=== PATIENT | female | born 1995 | race Caucasian/White ===

== ENCOUNTER 2016-09-24 19:09 | Emergency (ER) | payer OTHER ==
--- NOTE | 2016-09-24 19:41 | EDPHY ---
H & P Stated Complaint: Sent by [facility], concerned about a kidney infection Time Seen by Provider: 09/24/16 19:40 - Personal History LMP (Females 10-55): 1-7 Days Ago Current Tetanus Diphtheria and Acellular Pertussis (TDAP): Yes Tetanus Vaccine Date: 2013 - Medical/Surgical History Hx Asthma: No Hx Chronic Respiratory Disease: No Hx Diabetes: No Hx Cardiac Disease: No Hx Renal Disease: No Hx Cirrhosis: No Hx Alcoholism: No Hx HIV/AIDS: No Hx Splenectomy or Spleen Trauma: No Other PMH: ortho injuries. Anxiety - Social History Smoking Status: Never smoked Constitutional: Initial Vital Signs Temperature (C) 37.1 C 09/24/16 19:18 Heart Rate 91 09/24/16 19:18 Respiratory Rate 18 09/24/16 19:18 Blood Pressure 115/67 09/24/16 19:18 O2 Sat (%) 100 09/24/16 19:18 O2 Delivery Mode Room Air Allergies/Adverse Reactions: honey Allergy (Verified 10/13/14 12:52) Home Medications: Medication Instructions Recorded Cephalexin [Keflex (RX)] 500 mg PO TID #30 cap 09/24/16 Escitalopram Oxalate 09/24/16 Hydrocodone/APAP 5/325 [[place] 1 - 2 each PO Q4-6PRN PRN #20 tab 09/24/16 5/325] hydrOXYzine HCL 09/24/16 Medical Decision Making ED Course/Re-evaluation: CHIEF COMPLAINT: Abdominal pain. HISTORY OF PRESENT ILLNESS: The patient is a 21-year-old female who presents with non-radiating abdominal pain that began 3 days ago. She was diagnosed with a UTI a week ago but did not take any antibiotics as she was diagnosed in [place] and was given an unknown medication she did not take. She was seen at [facility] for the abdominal pain and was told she has pyelonephritis after a urinalysis, however she was not placed on antibiotics and was referred to the ED. She denies fever, vomiting, nausea, diarrhea, or other complaints. REVIEW OF SYSTEMS: A 10 point review of systems was performed and is negative with the exception of the elements mentioned in the history of present illness. PHYSICAL EXAM: HR, BP, O2 Sat, RR. Temp noted General Appearance: Alert, well hydrated, appropriate, and non-toxic appearing. Head: Atraumatic without scalp tenderness or obvious injury Eyes: Pupils equal, round, reactive to light and accommodation, EOMI, no trauma , no injection. Ears: Clear bilaterally, no perforation, normal landmarks Nose: Atraumatic, no rhinorrhea, clear. Throat: There is no erythema or exudates, no lesions, normal tonsils, mucus membranes moist. Neck: Supple, 2+ carotid upstroke, nontender, no lymphadenopathy. Respiratory: No retractions, no distress, no wheezes, and no accessory muscle use. Lungs are clear to auscultation bilaterally. Cardiovascular: Regular rate and rhythm, no murmurs, rubs, or gallops. Bilateral carotid, radial, dorsalis pedis, and posterior tibial pulses intact. Good capillary refill all extremities. Gastrointestinal: Abdomen is soft, non-distended, no masses, no rebound, no guarding, no peritoneal signs. RLQ tenderness. Musculoskeletal: Normal active ROM of all extremities, atraumatic. Neurological: Alert, appropriate, and interactive. The patient has normal DTRs and non-focal cranial nerves, motor, sensory, and cerebellar exam. Skin: No rashes, good turgor, no nodules on palpation. Past medical history: UTI, anxiety. Past surgical history: N/A. Family history: N/A. Social history: [employer] Student. DIAGNOSTICS/PROCEDURES/CRITICAL CARE TIME: Study: Ultrasound of the: RLQ. Indication: Pain. Results: No evidence of appendicitis no other acute findings DIFFERENTIAL DIAGNOSIS: The differential diagnosis for the patient's abdominal pain included but was not limited to ovarian cyst, pelvic inflammatory disease, ovarian torsion, urinary tract infection, ectopic , cholecystitis, and appendicitis. MEDICAL DECISION MAKIN-year-old female diagnosed with UTI a week ago presents with 3 days of abdominal pain. She was diagnosed with her UTI in [place] and did not take the medications she was prescribed. She visited [facility] for this abdominal pain and was told she has pyelonephritis however was not given any antibiotics. Her abdominal pain does not radiate. She denies other complaints at this time. We will run a urinalysis. On exam she is quite tender in the RLQ. This concerns me slightly and I will order a RLQ ultrasound. Urine is consistent with pyelonephritis. 25-50 WBC, 2+ Leukocyte esterase. Her lab work is otherwise negative and she does not have an elevated white count. I have given this patient 1 g of ceftriaxone. I am awaiting ultrasound results but I have low suspicion for a surgical finding I believe this to be a right- sided pyelonephritis. Patient is able to take p. o.. Patient is not nauseated and vomiting. Will discharge the patient on cephalexin - Data Points Laboratory Results: Laboratory Results 09/24/16 20:11 09/24/16 20:11 09/24/16 09/24/16 09/24/16 20:11 20:11 20:11 WBC 6.98 10^3/uL 10^3/uL (3.80-9.50) RBC 4.35 10^6/uL 10^6/uL (4.18-5.33) Hgb 12.9 g/dL g/dL (12.6-16.3) Hct 38.0 % % (38.0-47.0) MCV 87.4 fL fL (81.5-99.8) MCH 29.7 pg pg (27.9-34.1) MCHC 33.9 g/dL g/dL (32.4-36.7) RDW 12.6 % % (11.5-15.2) Plt Count 178 10^3/uL 10^3/uL (150-400) MPV 10.4 fL fL (8.7-11.7) Neut % (Auto) 76.8 % H % (39.3-74.2) Lymph % (Auto) 13.6 % L % (15.0-45.0) [place] % (Auto) 8.6 % % (4.5-13.0) Eos % (Auto) 0.3 % L % (0.6-7.6) Baso % (Auto) 0.4 % % (0.3-1.7) Nucleat RBC Rel Count 0.0 % % (0.0-0.2) Absolute Neuts (auto) 5.36 10^3/uL 10^3/uL (1.70-6.50) Absolute Lymphs (auto) 0.95 10^3/uL L 10^3/uL (1.00-3.00) Absolute Monos (auto) 0.60 10^3/uL 10^3/uL (0.30-0.80) Absolute Eos (auto) 0.02 10^3/uL L 10^3/uL (0.03-0.40) Absolute Basos (auto) 0.03 10^3/uL 10^3/uL (0.02-0.10) Absolute Nucleated RBC 0.00 10^3/uL 10^3/uL (0-0.01) Immature Gran % 0.3 % % (0.0-1.1) Immature Gran # 0.02 10^3/uL 10^3/uL (0.00-0.10) Sodium 136 mEq/L mEq/L (134-144) Potassium 4.1 mEq/L mEq/L (3.5-5.2) Chloride 105 mEq/L mEq/L (97-110) Carbon Dioxide 22 mEq/l mEq/l (22-31) Anion Gap 9 mEq/L mEq/L (8-16) BUN 5 mg/dL L mg/dL (7-23) Creatinine 0.6 mg/dL mg/dL (0.6-1.0) Estimated GFR > 60 Glucose 91 mg/dL mg/dL (70-100) Calcium 9.2 mg/dL mg/dL (8.5-10.4) Total Bilirubin 0.5 mg/dL mg/dL (0.1-1.4) Conjugated Bilirubin 0.3 mg/dL mg/dL (0.0-0.5) Unconjugated Bilirubin 0.2 mg/dL mg/dL (0.0-1.1) AST 20 IU/L IU/L (14-46) ALT 32 IU/L IU/L (9-52) Alkaline Phosphatase 47 IU/L IU/L (38-126) Total Protein 7.2 g/dL g/dL (6.3-8.2) Albumin 4.0 g/dL g/dL (3.5-5.0) Lipase 128.0 IU/L IU/L (23-300) Beta HCG, Qual NEGATIVE Urine Color Urine Appearance Urine pH Ur Specific [place] Urine Protein Urine Ketones Urine Blood Urine Nitrate Urine Bilirubin Urine Urobilinogen Ur Leukocyte Esterase Urine RBC Urine WBC Ur Epithelial Cells Ur Culture Indicated? Urine Glucose 09/24/16 19:20 WBC RBC Hgb Hct MCV MCH MCHC RDW Plt Count MPV Neut % (Auto) Lymph % (Auto) [place] % (Auto) Eos % (Auto) Baso % (Auto) Nucleat RBC Rel Count Absolute Neuts (auto) Absolute Lymphs (auto) Absolute Monos (auto) Absolute Eos (auto) Absolute Basos (auto) Absolute Nucleated RBC Immature Gran % Immature Gran # Sodium Potassium Chloride Carbon Dioxide Anion Gap BUN Creatinine Estimated GFR Glucose Calcium Total Bilirubin Conjugated Bilirubin Unconjugated Bilirubin AST ALT Alkaline Phosphatase Total Protein Albumin Lipase Beta HCG, Qual Urine Color PALE YELLOW Urine Appearance CLEAR Urine pH 7.0 (5.0-7.5) Ur Specific [place] 1.002 (1.002-1.030) Urine Protein NEGATIVE (NEGATIVE) Urine Ketones NEGATIVE (NEGATIVE) Urine Blood 1+ H (NEGATIVE) Urine Nitrate NEGATIVE (NEGATIVE) Urine Bilirubin NEGATIVE (NEGATIVE) Urine Urobilinogen NEGATIVE EU EU (0.2-1.0) Ur Leukocyte Esterase 2+ H (NEGATIVE) Urine RBC 5-10 /hpf H /hpf (0-3) Urine WBC 25-50 /hpf H /hpf (0-3) Ur Epithelial Cells TRACE /lpf /lpf (NONE-1+) Ur Culture Indicated? INDICATED H (NI) Urine Glucose NEGATIVE (NEGATIVE) Medications Given: Discontinued Medications Sodium Chloride (Ns) 1,000 mls @ 0 mls/hr IV ONCE ONE PRN Reason: Wide Open Stop: 09/24/16 19:58 Last Admin: 09/24/16 20:13 Dose: 1,000 mls Sodium Chloride (Ns) 1,000 mls @ 0 mls/hr IV ONCE ONE PRN Reason: Wide Open Stop: 09/24/16 19:58 Last Admin: 09/24/16 20:13 Dose: 1,000 mls Ketorolac Tromethamine (Toradol) 30 mg IVP EDNOW ONE Stop: 09/24/16 19:58 Last Admin: 09/24/16 20:13 Dose: 30 mg Ondansetron HCl (Zofran) 4 mg IVP EDNOW ONE Stop: 09/24/16 19:58 Last Admin: 09/24/16 20:13 Dose: 4 mg Departure - Departure Disposition: Home, Routine, Self-Care Clinical Impression: Pyelonephritis Condition: Good Instructions: Kidney Infection (ED) Additional Instructions: Take the antibiotic as prescribed. Drink plenty of fluids. Return to the emergency department for any serious worsening of condition. Referrals: [facility] [Clinic] - As per Instructions Prescriptions: Cephalexin [Keflex (RX)] 500 mg PO TID #30 cap Hydrocodone/APAP 5/325 [[place] 5/325] 1 - 2 each PO Q4-6PRN PRN #20 tab PRN Reason: Pain, Moderate Report Scribed for: Ab Campos Report Scribed by: Francesco Goss Date of Report: 09/24/16 Time of Report: 19:52
[2016-09-24] MEDS ORDERED: NS 1,000 ML IV ONE ×2 (19:57)
[2016-09-24] MEDS ORDERED: ONDANSETRON 4 MG/2 ML VIAL IVP ONE (19:57)
[2016-09-24] MEDS ORDERED: KETOROLAC 30 MG/1 ML SDV IVP ONE (19:57)
[2016-09-24 20:10] LABS: COLOR PALE YELLOW; LEUKOCYTE ESTERASE,URINE 2+ (NEGATIVE); NITRITE,URINE NEGATIVE (NEGATIVE)
[2016-09-24 20:20] LABS: % IMMATURE GRANULYOCYTES 0.3 % (0.0-1.1); ABSOLUTE IMMATURE GRANULOCYTES 0.02 10^3/uL (0.00-0.10); ADD DIFF? NO; ADD MORPH? NO; ADD SCAN? NO; ATYPICAL LYMPHOCYTE FLAG 50 (0-99); FRAGMENT RBC FLAG 0 (0-99); HEMOGLOBIN 12.9 g/dL (12.6-16.3); LEFT SHIFT FLG 0 (0-99); LIPEMIA HEMOLYSIS FLAG 90 (0-99); MEAN CELL HEMOGLOBIN 29.7 pg (27.9-34.1); MEAN CELL HEMOGLOBIN CONCENTR. 33.9 g/dL (32.4-36.7); MEAN CELL VOLUME 87.4 fL (81.5-99.8); MEAN PLATELET VOLUME 10.4 fL (8.7-11.7); PLATELET CLUMPS FLAG 0 (0-99); PLATELET COUNT 178 10^3/uL (150-400); RED BLOOD CELL COUNT 4.35 10^6/uL (4.18-5.33); RED CELL DISTRIBUTION WIDTH 12.6 % (11.5-15.2)
[2016-09-24 20:36] LABS: ALANINE AMINOTRANSFERASE 32 IU/L (9-52); ALKALINE PHOSPHATASE 47 IU/L (38-126); ANION GAP 9 mEq/L (8-16); ASPARTATE AMINOTRANSFERASE 20 IU/L (14-46); BILIRUBIN,TOTAL 0.5 mg/dL (0.1-1.4); BILIRUBIN-CONJUGATED 0.3 mg/dL (0.0-0.5); BILIRUBIN-UNCONJUGATED 0.2 mg/dL (0.0-1.1); CALCIUM 9.2 mg/dL (8.5-10.4); CARBON DIOXIDE 22 mEq/l (22-31); CHLORIDE 105 mEq/L (97-110); CREATININE 0.6 mg/dL (0.6-1.0); GLOMERULAR FILTRATION RATE > 60; GLUCOSE 91 mg/dL (70-100); POTASSIUM 4.1 mEq/L (3.5-5.2); SODIUM 136 mEq/L (134-144); TOTAL PROTEIN 7.2 g/dL (6.3-8.2)
[2016-09-24 20:40] LABS: WBC,URINE 25-50 /hpf (0-3)
[2016-09-24 21:35] VITALS: RESP 16
[2016-09-24 21:59] VITALS: BP 117/62; PULSE 75; TEMP 98.6; O2SAT 97
== END 2016-09-24 21:57 | disposition home or self-care (01) ==
DX: N12 Tubulo-interstitial nephritis, not specified as acute or chronic (principal)
CPT/HCPCS: 96365; J0696; J1885; J2405